=== PATIENT | male | born 1970 | race Caucasian/White ===

== ENCOUNTER 2017-08-14 08:58 | Emergency (ER) | payer BC ==
[~2017-08-14] VITALS: Ht 172.7 cm; Wt 78.5 kg
[~2017-08-14 08:58] MED LIST: BUPR150T6 PO; IBUP800T25 PO
[2017-08-14 08:59] VITALS: Ht 172.7 cm; Wt 78.5 kg
[2017-08-14] MEDS ORDERED: MECL12.574 PO (09:16)
--- NOTE | 2017-08-14 09:45 | ERD ---
ER Documentation Chief Complaint Date/Time DATE: 08/14/17 TIME: 09:42 Chief Complaint right ear pain and dizziness x 3 days - -- had these symptoms before HPI Patient is a 47-year-old male with no medical problems who presents with dizziness. He said that he has a "vertigo sensation". He has had this before. This episode started 3 days ago. He was wearing headphones and dribbling a basketball when it started. He felt like he would fall down and felt like the room was spinning. Now he is waking up with it. The last time it lasted 2 hours. He has right-sided ear pain. He has no fevers. He has had no treatment as of yet. Upon review of old medical records this is the patient's third visit to the ER since 2014. He does not currently have a primary doctor. ROS All systems reviewed and are negative except as per history of present illness. Medications Home Meds Active Scripts Meclizine Hcl* (Antivert*) 12.5 Mg Tab, 25 MG PO Q6H Y for DIZZINESS, #20 TAB Prov:JAMIR TUCKER MD 08/14/17 Ibuprofen* (Motrin*) 800 Mg Tab, 800 MG PO Q6H Y for PAIN AND OR ELEVATED TEMP, #30 TAB Prov:ATILIO GLASGOW DO 02/11/16 Reported Medications Bupropion Hcl* (Bupropion XL*) 150 Mg Tab.er.24h, 150 MG PO DAILY, TAB.SA 02/11/16 Allergies Allergies: Coded Allergies: No Known Allergy (Unverified , 11/13/14) PMhx/Soc Hx Neurological Disorder: No Hx Respiratory Disorders: No Hx Cardiac Disorders: No Hx Psychiatric Problems: Yes (DEPRESSION) Hx Miscellaneous Medical Probl: No Hx Alcohol Use: No Hx Substance Use: No Hx Tobacco Use: No Smoking Status: Never smoker FmHx Family History: No diabetes Physical Exam Vitals Vital Signs Date Time Temp Pulse Resp B/P Pulse Ox O2 Delivery O2 Flow Rate FiO2 08/14/17 08:59 97.5 98 68 146/66 98 Physical Exam Const: No acute distress Head: Atraumatic Eyes: Normal Conjunctiva ENT: Normal External Ears, Nose and Mouth. No sign of redness or irritation to the tympanic membranes bilaterally Neck: Full range of motion..~ No meningismus. Resp: Clear to auscultation bilaterally Cardio: Regular rate and rhythm, no murmurs Abd: Soft, non tender, non distended. Normal bowel sounds Skin: No petechiae or rashes Back: No midline or flank tenderness Ext: No cyanosis, or edema Neur: Awake and alert, cranial nerves II through XII intact, no slurred speech, strength is 5 out of 5 in all 4 extremities Psych: Normal Mood and Affect Procedures/MDM Patient is a 47-year-old male presents with dizziness. His symptoms are consistent with vertigo. I doubt stroke, intracranial mass, or intracranial hemorrhage. He has a normal neurologic exam and I do not believe he requires a CT scan of the brain at this time. The patient can return for any worsening symptoms. The patient will be given a prescription for meclizine. He will be given a list of the local clinics as he does not currently have a primary doctor. Departure Diagnosis: Primary Impression: Vertigo Additional Impression: Dizziness Condition: Fair Patient Instructions: Vertigo, Unspecified Referrals: [facility] YOU HAVE RECEIVED A MEDICAL SCREENING EXAM AND THE RESULTS INDICATE THAT YOU DO NOT HAVE A CONDITION THAT REQUIRES URGENT TREATMENT IN THE EMERGENCY DEPARTMENT. FURTHER EVALUATION AND TREATMENT OF YOUR CONDITION CAN WAIT UNTIL YOU ARE SEEN IN YOUR DOCTORS OFFICE WITHIN THE NEXT 1-2 DAYS. IT IS YOUR RESPONSIBILITY TO MAKE AN APPOINTMENT FOR FOLOW-UP CARE. IF YOU HAVE A PRIMARY DOCTOR --you should call your primary doctor and schedule an appointment IF YOU DO NOT HAVE A PRIMARY DOCTOR YOU CAN CALL OUR PHYSICIAN REFERRAL HOTLINE AT IF YOU CAN NOT AFFORD TO SEE A PHYSICIAN YOU CAN CHOSE FROM THE FOLLOWING [facility] [address] [facility] [address] [facility] [facility] [address] [facility] [address] [facility] [address] [facility]. [facility]. [address] Additional Instructions: Call your primary care doctor TOMORROW for an appointment during the next 1-2 days.See the doctor sooner or return here if your condition worsens before your appointment time. JAMIR TUCKER MD Aug 14, 2017 09:45
== END 2017-08-14 09:42 | disposition home or self-care (01) ==
LOC: FTE 08:58
DX: R42 Dizziness and giddiness (principal)
CPT/HCPCS: 99283

== ENCOUNTER 2018-06-04 20:28 | Emergency (ER) | END 2018-06-05 00:49 | disposition home or self-care (01) ==

== ENCOUNTER 2019-06-03 13:29 | Emergency (ER) | payer SELFPAY ==
[~2019-06-03] VITALS: Ht 157.5 cm; Wt 78.0 kg
[~2019-06-03 13:29] MED LIST changes: +CEPH-443 PO; +CYCL10TA7 PO; +HYDR-4011 PO; +IBUP-1542 PO; -IBUP800T25 PO; +IBUP800T48 PO; +MECL12.574 PO; +SULF1TAB31 PO
[2019-06-03 13:32] VITALS: BP 153/93; PULSE 93; RESP 18; Ht 157.5 cm; Wt 78.0 kg
[2019-06-03] MEDS ORDERED: LIDOCAINE 1% (MDV) 20 ML INJ SC ONE (15:00)
[2019-06-03] MEDS ORDERED: BACITRACIN 0.9 GM OINT TOP ONE (15:00)
[2019-06-03] MEDS ORDERED: LIDOCAINE 4% CR TOP ONE (15:00)
--- NOTE | 2019-06-03 22:21 | ERD ---
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 States that the mass has decreased in size. Patient denies any treatments. Patient denies any fevers, chills, numbness, tingling, impaired range of motion, pain with flexion or extension. ROS All systems reviewed and are negative except as per history of present illness. Medications Home Meds Active Scripts Ibuprofen* (Motrin*) 600 Mg Tab, 600 MG PO Q6, #30 TAB Prov:DANYEL LONG 06/03/19 Hydrocodone/Acetaminophen ([place] 5-325 Tablet) 1 Each Tablet, 1 TAB PO Q6H PRN for PAIN, #7 TAB Prov:DANYEL LONG 06/03/19 Sulfamethoxazole/Trimethoprim* (Bactrim Ds* Tablet) 1 Each Tablet, 1 TAB PO BID, #14 TAB Prov:DANYEL LONG 06/03/19 Cephalexin* (Keflex*) 500 Mg Capsule, 500 MG PO QID for 7 Days, CAP Prov:DANYEL LONG 06/03/19 Cyclobenzaprine Hcl* (Cyclobenzaprine Hcl*) 10 Mg Tablet, 10 MG PO Q12 PRN for MUSCLE SPASMS, #15 TAB Prov:MODE HASKINS 06/05/18 Ibuprofen* (Motrin*) 800 Mg Tab, 800 MG PO Q6H PRN for PAIN AND OR ELEVATED TEMP, #30 TAB Prov:MODE HASKINS 06/05/18 Meclizine Hcl* (Antivert*) 12.5 Mg Tab, 25 MG PO Q6H PRN for DIZZINESS, #20 TAB Prov:JAMIR TUCKER MD 08/14/17 Ibuprofen* (Motrin*) 800 Mg Tab, 800 MG PO Q6H PRN for PAIN AND OR ELEVATED T EMP, #30 TAB Prov:ATILIO GLASGOW DO 02/11/16 Reported Medications Bupropion Hcl* (Bupropion XL*) 150 Mg Tab.er.24h, 150 MG PO DAILY, TAB.SA 02/11/16 Allergies Allergies: Coded Allergies: No Known Allergy (Unverified , 06/04/18) PMhx/Soc Medical and Surgical Hx: pt denies Medical Hx, pt denies Surgical Hx History of Surgery: No Hx Neurological Disorder: No Hx Respiratory Disorders: No Hx Cardiac Disorders: No Hx Psychiatric Problems: Yes (DEPRESSION) Hx Miscellaneous Medical Probl: No Hx Alcohol Use: No Hx Substance Use: No Hx Tobacco Use: No Smoking Status: Never smoker FmHx Family History: No diabetes, No coronary disease, No other Physical Exam Vitals Vital Signs Date Temp Pulse Resp B/P (MAP) Pulse Ox O2 O2 Flow FiO2 Time Delivery Rate 06/03/19 98.0 93 18 153/93 99 13:32 (113) Physical Exam Const: No acute distress Head: Atraumatic Eyes: Normal Conjunctiva ENT: Normal External Ears, Nose and Mouth. Neck: Full range of motion. No meningismus. Resp: Clear to auscultation bilaterally Cardio: Regular rate and rhythm, no murmurs Abd: Soft, non tender, non distended. Normal bowel sounds Skin: No petechiae or rashes Back: No midline or flank tenderness Ext: No cyanosis, or edema Neur: Awake and alert Psych: Normal Mood and Affect Right third finger: Approximately 1 cm erythematous fluctuant mass noted to the PIP with some tenderness to palpation. There is no fusiform swelling noted. Finger is not held in flexion. There is no pain with passive extension. There is no tenderness to palpation over flexor tendon. Full range of motion and distal sensation is intact. Results 24 hrs Current Medications Medications Dose Sig/Verónica Start Time Status Last (Trade) Ordered Route PRN Stop Time Admin Dose Reason Admin Lidocaine 1 applic ONCE ONCE 06/03/19 DC (Lmx 4% Plus) TOP 15:00 06/03/19 15:01 Lidocaine 20 ml ONCE ONCE 06/03/19 DC (Xylocaine SC 15:00 06/03/19 1% (Mdv) 20 15:01 ml) Bacitracin 1 applic ONCE ONCE 06/03/19 DC (Bacitracin TOP 15:00 06/03/19 Oint (Ud)) 15:01 Procedures/MDM Abscess Incision and Drainage with irrigation by me: Location: PIP of third right digit Anesthesia: Local 1% Lidocaine Technique: Irrigated. Disrupted loculations w/ instrumentation Packing: None Complications: Neurovascularly intact post procedure 48 hour wound check. Scar minimization instructions given MDM: Abscess was drained using the above technique. Patient tolerated procedure well without any complications. I have low suspicion for flexor tenosynovitis, osteomyelitis, sepsis, or any emergent condition. Patient was given Rx for Bactrim and Keflex and advised to return in 2 days for wound check. At this time, patient is stable for discharge and outpatient management. I have instructed the patient to follow-up with his/her primary care physician in 1 day. I have discussed with the patient the possibility of needing to see a specialist for further workup and imaging studies if symptoms persist. I have instructed the patient to promptly return to the ER for any new or worsening symptoms including but not limited to increased pain, fever, nausea, vomiting, weakness or LOC. The patient and/or family expressed understanding of and agreement with this plan. All questions were answered. Home care instructions were provided. DISCLAIMER: Inadvertent spelling and grammatical errors are likely due to EHR/dictation software use and do not reflect on the overall quality of patient care. Also, please note that the electronic time recorded on this note does not necessarily reflect the actual time of the patient encounter. Departure Diagnosis: Primary Impression: Abscess Condition: Stable Patient Instructions: Abscess, Incision And Drainage Referrals: [facility] YOU HAVE RECEIVED A MEDICAL SCREENING EXAM AND THE RESULTS INDICATE THAT YOU DO NOT HAVE A CONDITION THAT REQUIRES URGENT TREATMENT IN THE EMERGENCY DEPARTMENT. FURTHER EVALUATION AND TREATMENT OF YOUR CONDITION CAN WAIT UNTIL YOU ARE SEEN IN YOUR DOCTORS OFFICE WITHIN THE NEXT 1-2 DAYS. IT IS YOUR RESPONSIBILITY TO MAKE AN APPOINTMENT FOR FOLOW-UP CARE. IF YOU HAVE A PRIMARY DOCTOR --you should call your primary doctor and schedule an appointment IF YOU DO NOT HAVE A PRIMARY DOCTOR YOU CAN CALL OUR PHYSICIAN REFERRAL HOTLINE AT IF YOU CAN NOT AFFORD TO SEE A PHYSICIAN YOU CAN CHOSE FROM THE FOLLOWING [facility] [address] [facility] [address] [facility] [facility] [address] [facility] [address] [facility] [address] [facility]. [facility]. [address] Additional Instructions: Return to this facility in 2 DAYS for a follow-up exam.Return sooner if your condition worsens. DANYEL LONG Jun 03, 2019 22:20
== END 2019-06-03 15:26 | disposition home or self-care (01) ==
LOC: FTE 13:29
DX: L02.511 Cutaneous abscess of right hand (principal)

== ENCOUNTER 2019-06-05 15:39 | Emergency (ER) | payer SELFPAY ==
[~2019-06-05] VITALS: Ht 167.6 cm; Wt 73.5 kg
[2019-06-05 15:46] VITALS: BP 125/75; PULSE 70; RESP 18; Ht 167.6 cm; Wt 73.5 kg
--- NOTE | 2019-06-05 16:51 | ERD ---
ER Documentation Chief Complaint Chief Complaint 2 day wound check left 3rd finger HPI 49-year-old male who presents for wound check after having left third digit incision and drainage 2 days ago. Patient reports improvement of symptoms of pain and swelling. Still having some pus drainage from incision site. No neurovascular complaints. ROS All systems reviewed and are negative except as per history of present illness. Medications Home Meds Active Scripts Ibuprofen* (Motrin*) 600 Mg Tab, 600 MG PO Q6, #30 TAB Prov:DANYEL LONG 06/03/19 Hydrocodone/Acetaminophen ([place] 5-325 Tablet) 1 Each Tablet, 1 TAB PO Q6H PRN for PAIN, #7 TAB Prov:DANYEL LONG 06/03/19 Sulfamethoxazole/Trimethoprim* (Bactrim Ds* Tablet) 1 Each Tablet, 1 TAB PO BID, #14 TAB Prov:DANYEL LONG 06/03/19 Cephalexin* (Keflex*) 500 Mg Capsule, 500 MG PO QID for 7 Days, CAP Prov:DANYEL LONG 06/03/19 Cyclobenzaprine Hcl* (Cyclobenzaprine Hcl*) 10 Mg Tablet, 10 MG PO Q12 PRN for MUSCLE SPASMS, #15 TAB Prov:PASILABANJAMIEAR F 06/05/18 Ibuprofen* (Motrin*) 800 Mg Tab, 800 MG PO Q6H PRN for PAIN AND OR ELEVATED TEMP, #30 TAB Prov:PASILABAN,JAMIEAR F 06/05/18 Meclizine Hcl* (Antivert*) 12.5 Mg Tab, 25 MG PO Q6H PRN for DIZZINESS, #20 TAB Prov:JAMIR TUCKER MD 08/14/17 Ibuprofen* (Motrin*) 800 Mg Tab, 800 MG PO Q6H PRN for PAIN AND OR ELEVATED TEMP, #30 TAB Prov:ATILIO GLASGOW DO 02/11/16 Reported Medications Bupropion Hcl* (Bupropion XL*) 150 Mg Tab.er.24h, 150 MG PO DAILY, TAB.SA 02/11/16 Allergies Allergies: Coded Allergies: No Known Allergy (Unverified , 06/05/19) PMhx/Soc Medical and Surgical Hx: pt denies Medical Hx, pt denies Surgical Hx History of Surgery: No Hx Neurological Disorder: No Hx Respiratory Disorders: No Hx Cardiac Disorders: No Hx Psychiatric Problems: Yes (DEPRESSION) Hx Miscellaneous Medical Probl: No Hx Alcohol Use: No Hx Substance Use: No Hx Tobacco Use: No Smoking Status: Never smoker FmHx Family History: No diabetes, No coronary disease, No other Physical Exam Vitals Vital Signs Date Temp Pulse Resp B/P (MAP) Pulse Ox O2 O2 Flow FiO2 Time Delivery Rate 06/05/19 97.9 70 18 125/75 98 15:46 (92) Physical Exam Const: No acute distress Head: Atraumatic Eyes: Normal Conjunctiva ENT: Normal External Ears, Nose and Mouth. Neck: Full range of motion. No meningismus. Resp: Clear to auscultation bilaterally Cardio: Regular rate and rhythm, no murmurs Abd: Soft, non tender, non distended. Normal bowel sounds Skin: No petechiae or rashes Back: No midline or flank tenderness Ext: Left third digit of left hand, open wound with some pus discharge, moving all fingers, sensation intact Neur: Awake and alert Psych: Normal Mood and Affect Procedures/MDM 49-year-old male who presents for wound check. Patient had a I&D of left third digit of left hand. Area is healing well. Patient taking antibiotics as prescribed. DISPOSITION PLAN: We discussed follow up with the patient's primary care doctor within 24 to 48 hours. Patient counseled regarding my diagnostic impression and care plan. Prior to discharge all questions answered. Pt agrees with treatment plan and under stands strict return precautions. Precautionary instructions provided including instructions to return to the ER if not improving or for any worsening or changing symptoms or concerns. Disclaimer: Inadvertent spelling and grammatical errors are likely due to EHR/dictation software use and do not reflect on the overall quality of patient care. Also, please note that the electronic time recorded on this note does not necessarily reflect the actual time of the patient encounter. Departure Diagnosis: Primary Impression: Encounter for wound re-check Condition: Stable Patient Instructions: Wound Care Referrals: [facility] YOU HAVE RECEIVED A MEDICAL SCREENING EXAM AND THE RESULTS INDICATE THAT YOU DO NOT HAVE A CONDITION THAT REQUIRES URGENT TREATMENT IN THE EMERGENCY DEPARTMENT. FURTHER EVALUATION AND TREATMENT OF YOUR CONDITION CAN WAIT UNTIL YOU ARE SEEN IN YOUR DOCTORS OFFICE WITHIN THE NEXT 1-2 DAYS. IT IS YOUR RESPONSIBILITY TO MAKE AN APPOINTMENT FOR FOLOW-UP CARE. IF YOU HAVE A PRIMARY DOCTOR --you should call your primary doctor and schedule an appointment IF YOU DO NOT HAVE A PRIMARY DOCTOR YOU CAN CALL OUR PHYSICIAN REFERRAL HOTLINE AT IF YOU CAN NOT AFFORD TO SEE A PHYSICIAN YOU CAN CHOSE FROM THE FOLLOWING [facility] CL[facility] [address] [facility] [address] [facility] [address] [facility] [address] [facility] [address] [facility]. [facility] [address] Additional Instructions: Call your primary care doctor TOMORROW for an appointment during the next 2-3 days.See the doctor sooner or return here if your condition worsens before your appointment time. If wound does not continue to heal worsens please return to emergency room for further care. Antibiotics to completion as prescribed. CAMILA DURAND PA-C Jun 05, 2019 16:51 RAYSHAWN DIAZ MD Jun 05, 2019 23:30
== END 2019-06-05 16:55 | disposition home or self-care (01) ==
LOC: FTE 15:39
DX: Z48.01 Encounter for change or removal of surgical wound dressing (principal)
CPT/HCPCS: 99281